=== PATIENT | female | born 1955 | race Caucasian/White ===

== ENCOUNTER → 2016-10-01 | Outpatient (CLI) | payer BC ==
[~2016-10-01] MED LIST: ANTIVERT 25MG25 MG PO; ASPIRIN 81M81 MG/TA2; CALCIUM600 MG; GLUCOSAMINE & C1 CA1; HORIZANT600 MG; LUNESTA3 MG; NEURONTIN300 MG/CAP; VITAMIN D2000 I1
[2016-10-01 14:31] LABS: BASO # 0.1 (0.0-0.2); BASO % 0.9 % (0.0-2.0); EOS % 0.2 % (0-4.0); GRAN # 7.4 (1.4-6.5); HEMATOCRIT 43.9 % (37.0-47.0); HEMOGLOBIN 14.4 g/dl (12.5-16.0); LYMPH # 2.4 (1.2-3.4); LYMPH % 22.7 % (20.0-51.0); MEAN CELL VOLUME 87 fl (80.0-100.0); MEAN CORPUSCULAR HEMOGLOBIN 29 pg (27.0-31.0); MEAN CORPUSCULAR HGB CONC 33 g/dl (33.0-37.0); MEAN PLATELET VOLUME 8.8 fl (7.4-10.4); MONO # 0.6 (0.1-0.6); PLATELET COUNT 614 K/mm3 (130-400); RED BLOOD COUNT 5.06 M/mm3 (4.10-5.30); REDCELL DISTRIBUTION WIDTH-CV 12.9 % (11.5-14.5); WHITE BLOOD COUNT 10.6 K/mm3 (4.8-10.8)
[2016-10-01 14:37] LABS: ADJUSTED CALCIUM 9.2 mg/dL (8.4-10.2); ALBUMIN 4.6 gm/dL (3.5-5.0); BILIRUBIN,TOTAL 0.7 mg/dL (0.0-1.0); CALCIUM 9.7 mg/dL (8.4-10.2); CREATININE, serum 0.83 mg/dL (0.52-1.25); POTASSIUM 3.9 mmol/L (3.4-5.0); TOTAL PROTEIN 7.8 gm/dL (6.4-8.2)
[2016-10-01 14:38] LABS: PROTHROMBIN TIME 10.8 SECONDS (9.7-12.8)
[2016-10-01 14:41] LABS: PARTIAL THROMBOPLASTIN TIME 33.4 SECONDS (26.0-37.0)
[2016-10-01 15:39] LABS: ERYTHROCYTE SEDIMENTATION RATE 8 mm/hr (0-30)
== END ==
LOC: COL.LAB 13:55
DX: R23.3 Spontaneous ecchymoses (principal)

== ENCOUNTER → 2022-01-26 | Outpatient (CLI) | payer OTHER | LOC: MC.RAD 13:15 | DX: Z12.31 Encounter for screening mammogram for malignant neoplasm of breast (principal); Z13.820 Encounter for screening for osteoporosis ==

== ENCOUNTER → 2022-10-05 | Outpatient (CLI) | payer MEDICARE | LOC: COL.LAB 13:25 | DX: Z01.89 Encounter for other specified special examinations (principal) ==